=== PATIENT | male | born 1975 | race Caucasian/White ===

== ENCOUNTER 2017-08-09 12:17 | Emergency (ER) | payer MEDICAID, OTHER ==
[~2017-08-09] VITALS: Ht 165.1 cm; Wt 99.1 kg
[~2017-08-09 12:17] MED LIST: ONDA4TAB6 PO; PANT20TA2 PO
[2017-08-09] MEDS ORDERED: DOXY100C2 PO (13:27)
== END 2017-08-09 13:57 | disposition home or self-care (01) ==
LOC: ER 12:18
DX: S61.216A Laceration without foreign body of right little finger without damage to nail, initial encounter (principal); A88.0 Enteroviral exanthematous fever [Boston exanthem]; Z79.899 Other long term (current) drug therapy; W23.0XXA Caught, crushed, jammed, or pinched between moving objects, initial encounter; Y93.89 Activity, other specified; Y92.89 Other specified places as the place of occurrence of the external cause; Y99.8 Other external cause status
CPT/HCPCS: 12001; 99283

== ENCOUNTER 2023-10-08 07:30 | Outpatient (CLI) | payer MEDICAID | END 2023-10-08 23:59 | disposition home or self-care (01) | LOC: MRI 07:30 | PROVIDERS: ATTEND Specialist | DX: S43.101A Unspecified dislocation of right acromioclavicular joint, initial encounter (principal); M75.101 Unspecified rotator cuff tear or rupture of right shoulder, not specified as traumatic; M25.511 Pain in right shoulder; X58.XXXA Exposure to other specified factors, initial encounter; Y93.89 Activity, other specified; Y92.89 Other specified places as the place of occurrence of the external cause; Y99.8 Other external cause status | CPT/HCPCS: 73221 ==